=== PATIENT | female | born 1985 | race Caucasian/White ===

== ENCOUNTER 2016-10-05 03:19 | Emergency (ER) | payer OTHER ==
[2016-10-05] MEDS ORDERED: Ketorolac INJ* 60 MG/2 ML VIAL IM ONE (04:11)
--- NOTE | 2016-10-05 04:38 | ED ---
Yfn Joseph SooYoung, scribed for Sudarshan Palomares MD on 10/05/16 at 0341 . HPI Chest Pain - HPI Summary HPI Summary: A 30 y/o F presents to ED with c/o worsening chest wall pain onset three days ago. Pt was sick with bronchitis recently. She thinks she may have coughed so hard at some point that she pulled a muscle. Aggravating factors: deep breaths. She took Alleve but it provided no relief. Pert PMHx: pericarditis two years ago - History of Current Complaint Chief Complaint: EDChestWallPain Time Seen by Provider: 10/05/16 03:30 Hx Obtained From: Patient Onset/Duration: Started Days Ago, Still Present Current Severity: Moderate Pain Intensity: 7 Pain Scale Used: 0-10 Numeric Aggravating Factor(s): Deep Breaths - Allergy/Home Medications Allergies/Adverse Reactions: Allergies Allergy/AdvReac Type Severity Reaction Status Date / Time No Known Allergies Allergy Verified 10/05/16 03:27 Home Medications: Home Medications Venlafaxine HCl [Venlafaxine HCl ER-] 3 tab PO DAILY 10/05/16 [History Confirmed 10/05/16] clonazePAM TAB(*) [Klonopin TAB(*)] 1 tab PO DAILY PRN 10/05/16 [History Confirmed 10/05/16] PMH/Surg Hx/FS Hx/Imm Hx Previously Healthy: Yes Opthamlomology History: Denies: Hx Legally Blind Infectious Disease History: No Infectious Disease History: Denies: Traveled Outside the [place] in Last 30 Days Review of Systems Negative: Fever Positive: Chest Pain All Other Systems Reviewed And Are Negative: Yes Physical Exam Triage Information Reviewed: Yes Vital Signs On Initial Exam: Initial Vitals Temp Pulse Resp BP Pulse Ox 99.2 F 85 16 115/77 100 10/05/16 03:20 10/05/16 03:20 10/05/16 03:20 10/05/16 03:20 10/05/16 03:20 Vital Signs Reviewed: Yes Appearance: Positive: Well-Appearing, No Pain Distress Skin: Positive: Warm Head/Face: Positive: Normal Head/Face Inspection Eyes: Positive: Normal ENT: Positive: Hearing grossly normal Neck: Positive: Supple Respiratory/Lung Sounds: Positive: Clear to Auscultation, Breath Sounds Present Cardiovascular: Positive: RRR. Negative: Murmur Abdomen Description: Positive: Nontender, Soft Bowel Sounds: Positive: Present Musculoskeletal: Positive: Strength/ROM Intact Neurological: Positive: Alert, Oriented to Person Place, Time Psychiatric: Positive: Affect/Mood Appropriate Diagnostics - Vital Signs Vital Signs Temp Pulse Resp BP Pulse Ox 10/05/16 03:20 99.2 F 85 16 115/77 100 - Laboratory Lab Statement: Any lab studies that have been ordered have been reviewed, and results considered in the medical decision making process. - Radiology CXR Xray Interpretation: No Acute Changes Radiology Interpretation Completed By: ED Physician - EKG 1 Cardiac Rate: NL EKG Rhythm: Sinus Rhythm ST Segment: Normal Chest Pain Course/Dx - Diagnoses Provider Diagnoses: Chest wall pain Discharge - Discharge Plan Condition: Stable Disposition: HOME Patient Education Materials: Chest Wall Pain (ED) Referrals: Non Staff,Doctor [Primary Care Provider] - [facility] [place] [facility]FERRAL [Outside] Additional Instructions: Follow up with your primary care physician as needed. Please return to the Emergency Department for new or worsening symptoms. The documentation as recorded by the Yfn isabel SooYoung accurately reflects the service I personally performed and the decisions made by me, Sudarshan Palomares MD.
[2016-10-05 05:51] VITALS: BP 109/66
--- NOTE | 2016-10-05 07:22 | RAD ---
INDICATION: Chest pain. COMPARISON: There are no prior studies available for comparison. TECHNIQUE: Dual-energy PA and lateral views of the chest were obtained. FINDINGS: The heart is within normal limits in size. Mediastinal and hilar contours appear within normal limits. The lungs are clear. There is no evidence for pleural effusion or pneumothorax. IMPRESSION: NO EVIDENCE FOR ACTIVE CARDIOPULMONARY DISEASE.
== END 2016-10-05 05:49 | disposition home or self-care (01) ==
LOC: ED 03:19
DX: R07.89 Other chest pain (principal)
CPT/HCPCS: 71020; 93005; 96372; 99282; J1885